=== PATIENT | female | born 1975 ===

== ENCOUNTER 2018-04-27 18:21 | Inpatient (IN) | payer BC ==
[2018-04-27] VITALS (11 sets, daily range): BP systolic 100–123; BP diastolic 61–88; BMI 21.5
[~2018-04-27] VITALS: Ht 162.6 cm; Wt 55.9 kg
--- NOTE | ~2018-04-27 | MORECARE ---
CASE MANAGEMENT DISCHARGE SUMMARY PATIENT: MARY BENITEZ UNIT: [id number] ADM DATE: 04/27/18 AGE: 42 : [birth year] SEX: F ROOM/BED: D.2236 AUTHOR: ABHISHEK GUAJARDO PHYSICIAN: REFERRING PHYSICIAN: KYLEE NJ MD DATE OF SERVICE: 05/08/18 Discharge Plan Patient Name: MARY BENITEZ Facility: [facility]:[place] : 1975 Planned Disposition: Home Anticipated Discharge Date: Discharge Date: Expected LOS: Initial Reviewer: [email or web address] Initial Review Date: 05/08/2018 Generated: 05/08/18 11:52 am Comments DCP- Discharge Planning Updated by [email or web address]: Charity Hatfield on 05/08/18 9:[address] Patient Name: MARY BENITEZ Admission Status: ER Accout number: [id number] Admission Date: 04-27-2018 : 1975 Admission Diagnosis:SEPSIS, UNSPECIFIED ORGANISM Attending: KYLEE NJ Current LOS: 11 Anticipated DC Date: Planned Disposition: Home Primary Insurance: [employer] OUT OF STATE Discharge Planning Comments: CM met with patient to discuss discharge planning, she is alone in the room. She is alert and answers some questions appropriately. She states it is ok to call her , aunt or father for discharge planning. I called her , Marcelo, for discharge planning. He verifies that she lives with him in a one story house. Prior to hospitalization she was independent with all ADL's and IADL's. States she does have a nebulizer that she uses for her asthma. States he is unsure of the name of the pharmacy they use in [place] or [place] for the nebulizer. States he plans on her returning home at discharge and he will provide transportation. States he does not know of any discharge needs at this time, including rehab or home health. CM will continue to follow and assist with discharge planning/needs. Civil Service Worker: Charity Hatfield DCPIA - Discharge Planning Initial Assessment Updated by [email or web address]: Charity Hatfield on 05/08/18 10:41 am * Is the patient Alert and Oriented? Yes * How many steps to enter\exit or inside your home? 2-3/0 * PCP Dr. Anderson in [facility] * Pharmacy Unknown name in [facility] * Preadmission Environment Home with Family * ADLs Independent * Equipment Nebulizer * List name and contact numbers for known caregivers / representatives who currently or will assist patient after discharge: Marcelo Anderson - - [phone] Fabricio - aunt - [phone] Father - [phone] * Verbal permission to speak to the caregivers and representatives has been obtained from the patient. Yes * Community resources currently utilized None * Additional services required to return to the preadmission environment? No * Can the patient safely return to the preadmission environment? Yes * Has this patient been hospitalized within the prior 30 days at any hospital? No Last DP export: 05/08/18 9:43 Patient Name: MARY BENITEZ Page [id number] at 1052 All edits/amendments must be made on the electronic document DICTATION DATE: 05/08/18 105 CLERGY MEMBER: MYRA 05/08/18 105 RPT#: [id number] DC DATE: STATUS: ADM IN [facility] [address] [place] [address] END OF REPORT
--- NOTE | ~2018-04-27 | MORECARE ---
CASE MANAGEMENT DISCHARGE SUMMARY PATIENT: MARY BENITEZ UNIT: [id number] ADM DATE: 04/27/18 AGE: 42 : 71 SEX: F ROOM/BED: D.2236 AUTHOR: ABHISHEK GUAJARDO PHYSICIAN: REFERRING PHYSICIAN: KYLEE NJ MD DATE OF SERVICE: 05/11/18 Discharge Plan Patient Name: MARY BENITEZ Facility: [facility]:[place] : 1975 Planned Disposition: Home Anticipated Discharge Date: Discharge Date: 05/10/2018 Expected LOS: Initial Reviewer: [email or web address] Initial Review Date: 05/08/2018 Generated: 05/11/18 2:01 pm Comments DCP- Discharge Planning Updated by [email or web address]: Charity Hatfield on 05/08/18 9:[address] Patient Name: MARY BENITEZ Admission Status: ER Accout number: [id number] Admission Date: 04-27-2018 : 1975 Admission Diagnosis:SEPSIS, UNSPECIFIED ORGANISM Attending: KYLEE NJ Current LOS: 11 Anticipated DC Date: Planned Disposition: Home Primary Insurance: [employer] OUT OF STATE Discharge Planning Comments: CM met with patient to discuss discharge planning, she is alone in the room. She is alert and answers some questions appropriately. She states it is ok to call her , aunt or father for discharge planning. I called her , Marcelo, for discharge planning. He verifies that she lives with him in a one story house. Prior to hospitalization she was independent with all ADL's and IADL's. States she does have a nebulizer that she uses for her asthma. States he is unsure of the name of the pharmacy they use in [place] or [employer] [employer] for the nebulizer. States he plans on her returning home at discharge and he will provide transportation. States he does not know of any discharge needs at this time, including rehab or home health. CM will continue to follow and assist with discharge planning/needs. Internet Sourcer: Charity Hatfield DCPIA - Discharge Planning Initial Assessment Updated by [email or web address]: Charity Hatfield on 05/08/18 10:41 am * Is the patient Alert and Oriented? Yes * How many steps to enter\exit or inside your home? 2-3/0 * PCP Dr. Anderson in [facility] * Pharmacy Unknown name in [facility] * Preadmission Environment Home with Family * ADLs Independent * Equipment Nebulizer * List name and contact numbers for known caregivers / representatives who currently or will assist patient after discharge: Marcelo Anderson - - [phone] Fabricio - aunt - [phone] Father - [phone] * Verbal permission to speak to the caregivers and representatives has been obtained from the patient. Yes * Community resources currently utilized None * Additional services required to return to the preadmission environment? No * Can the patient safely return to the preadmission environment? Yes * Has this patient been hospitalized within the prior 30 days at any hospital? No Last DP export: 05/08/18 9:52 Patient Name: MARY BENITEZ Page [id number] at 1301 All edits/amendments must be made on the electronic document DICTATION DATE: 05/11/18 1301 PROPERTY MANAGEMENT SUPERVISOR: MYRA 05/11/18 1301 RPT#: [id number] DC DATE:05/10/18 STATUS: DIS IN [facility] [address] [place] [address] END OF REPORT
--- NOTE | ~2018-04-27 | CN ---
PATIENT NAME:MARY BENITEZ MEDICAL RECORD: [id number] : [birth year] LOCATION:D.MS Turner2236 ADMIT DATE: 04/27/18 ACCOUNT: [id number] CONSULTING PHYSICIAN: LAVON WEST MD REFERRING PHYSICIAN: KYLEE NJ MD DATE OF CONSULTATION: 05/07/2018 PSYCHIATRIC CONSULTATION IDENTIFYING DATA: The patient is 42 years old and she was admitted to the hospital on a voluntary basis because of dyspnea. CHIEF COMPLAINT: None. HISTORY OF PRESENT ILLNESS: The patient apparently has a history of intravenous methamphetamine abuse and presented to the hospital dyspneic and hypothermic with respiratory failure. She was intubated and has been intubated for several days. She is now extubated and showing evidence of confusion. MENTAL STATUS EXAMINATION: The patient is awake, alert, and oriented to person, place, and mostly to time and situation. Her mood is euthymic. Her affect is appropriate. Thought processes are circumstantial. Memory, concentration, and abstraction abilities are impaired. She is very circumstantial and actually is openly loose in some of her associations. She denies psychotic symptoms as well as thoughts of harming herself or others. PAST PSYCHIATRIC HISTORY: Significant for longstanding methamphetamine addiction and she does have a history of trying to hurt herself years ago. She does not currently see a psychiatrist. ASSESSMENT: Mild cognitive impairment. The patient is clearly impaired cognitively. I do not believe this is a delirium. There has been too much time that has elapsed. She has now been extubated for over 24 hours. She is awake, alert, speaking to me normally, but with the deficits noted above. Obviously, she has had some sort of significant injury and I am assuming that this is a change in her cognition before she presented. The factors are probably multiple including a global hypoxic injury, but the patient is impaired in a significant way. I am going to prescribe a low dose of an antipsychotic medication for her. She says she has a that she is very supportive and that she wants to go home and live with him. She also says that one of the teenage children in the home was arrested today for selling methamphetamine. Assuming the home environment is appropriate and safe and reasonably drug free now that the teenage son has been arrested, I do not see a major problem with this. I think that as with many people who have brain injuries, time will be a factor that will determine how much improvement will happen. It would not be unreasonable for her to receive occupational therapy and/or speech therapy associated with what has happened to her. I would also recommend outpatient psychiatric care. Given her current level of cognition, I do not think she could participate in a residential substance abuse program and given the fact that she is minimizing and dismissing her history of substance abuse, I do not think that she would voluntarily go. I do not see her as acutely dangerous in some direct suicidal, homicidal, or psychotic way, but I am going to prescribe for her a low dose of Geodon to assist with sleep consolidation and thought disorganization. This would not be a medication that I would recommend long-term, but perhaps a month or two until what her new baseline level of functioning is better established CONSULT REPORT [id number] MARY BENITEZ and then at that point, consideration should be given to discontinuing it. TRANSINT:[id number] Voice Confirmation ID: [id number] DOCUMENT ID: [id number] LAVON WEST MD at 1627 CC: [id number] DICTATION DATE: 05/07/18 1640 SECURITY ESCORT: 05/07/18 2104 ADM IN [facility] [address] [place] [address]
--- NOTE | ~2018-04-27 | EC ---
PATIENT:MARY BENITEZ DATE OF SERVICE: 04/27/18 SEX: F MEDICAL RECORD: [id number] DATE OF : [birth year] LOCATION:[facility] AGE OF PATIENT: 42 ADMISSION DATE: 04/27/18 REFERRING PHYSICIAN: INTERPRETING PHYSICIAN: ALBANIA JONES MD ECHOCARDIOGRAM REPORT ECHO CHARGES 5 ECHO LIMITED Date: 05/01/18 CLINICAL DIAGNOSIS: POST THORACENTESISE/DOBUTAMINE GTT ECHOCARDIOGRAPHIC MEASUREMENTS (adult normal given) AC root (d.<3.7cm) 3.1 cm LV Septum d (<1.2 cm> 1.1 cm Valve Excursion 1.0 cm LV Septum (systole) 1.3 cm Left Atria (s.<4.0cm> 3.8 cm LVPW d(<1.2cm) 1.1 cm RV (d.<2.3cm) 4.1 cm LVPW (sytole) 1.2 cm LV diastole(<5.6CM) 4.5 cm MV E-F(>70mm/sec) cm LV systole 3.6 cm LVOT Diameter 1.5 cm MV exc.(>10mm) 1.8 cm Est.ejection fraction (50-75%) % DOPPLER: LVIT cm/sec A 29.0 cm/sec E 99.0 cm/sec LA cm/sec RVSP 35 mmHg LVOT 70 cm/sec AOP1/2T m/s Asc. Ao 81 cm/sec RVOT 61 cm/sec RA cm/sec PA 79 cm/sec AV Gradient Peak 2.62 mmHg AV Mean 1.37 mmHg AV Area 1.4 cm MV Gradient Peak 6.81 mmHg MV Mean 2.01 mmHg MV Area cm COMMENTS: Seo Coordinator: Arelis FONSECA Rouge Mixer: 2 Dr. Lee TAPE# PACS Pericardial Effusion N DATE OF SERVICE: 05/01/2018 PROCEDURE: Echocardiogram. FINDINGS: 1. Left ventricular chamber size is within normal limits. Left ventricular systolic function is markedly reduced, overall ejection fraction in the 25% range. There appears to be segmental wall motion abnormalities of lateral and inferior with severe hypokinesis inferiorly, krxvzstc-[id number] hypokinesis laterally. Anterior wall does appear to be relatively preserved. ECHOCARDIOGRAM REPORT [id number] MARY BENITEZ 2. Left atrium, right atrium, and right ventricle chamber sizes are within normal limits. 3. Valvular structures have normal structure and motion. 4. Doppler interrogation reveals mild tricuspid regurgitation, no other valvular insufficiency or stenosis. Pulmonary systolic pressure is estimated at 35 mmHg. 5. Large pericardial effusion is present. This does not appear to give right atrial or right ventricular collapse. TRANSINT:[id number] Voice Confirmation ID: [id number] DOCUMENT ID: [id number] ALBANIA JONES MD at 1031 CC: [id number] DICTATION DATE: 05/01/18 1403 SHAREPOINT ADMINISTRATOR: 05/01/18 1503 ADM IN [facility] [address] [place] [id number]
--- NOTE | ~2018-04-27 | EC ---
PATIENT:MARY BENITEZ DATE OF SERVICE: 04/27/18 SEX: F MEDICAL RECORD: [id number] DATE OF : [birth year] LOCATION:[facility] AGE OF PATIENT: 42 ADMISSION DATE: 04/27/18 REFERRING PHYSICIAN: INTERPRETING PHYSICIAN: ALBANIA RAMIRES MD ECHOCARDIOGRAM REPORT ECHO CHARGES 4 ECHO COMPLETE Date: 04/28/18 CLINICAL DIAGNOSIS: [place] ECHOCARDIOGRAPHIC MEASUREMENTS (adult normal given) AC root (d.<3.7cm) 3.1 cm LV Septum d (<1.2 cm> 1.3 cm Valve Excursion 1.0 cm LV Septum (systole) 1.6 cm Left Atria (s.<4.0cm> 3.5 cm LVPW d(<1.2cm) 1.5 cm RV (d.<2.3cm) 4.2 cm LVPW (sytole) 1.8 cm LV diastole(<5.6CM) 4.0 cm MV E-F(>70mm/sec) cm LV systole 3.3 cm LVOT Diameter 1.5 cm MV exc.(>10mm) 1.8 cm Est.ejection fraction (50-75%) % DOPPLER: LVIT cm/sec A 29.0 cm/sec E 99.0 cm/sec LA cm/sec RVSP 32 mmHg LVOT 70 cm/sec AOP1/2T m/s Asc. Ao 81 cm/sec RVOT 61 cm/sec RA cm/sec PA 79 cm/sec AV Gradient Peak 2.62 mmHg AV Mean 1.37 mmHg AV Area 1.4 cm MV Gradient Peak 6.81 mmHg MV Mean 2.01 mmHg MV Area cm COMMENTS: Still Runner: Arelis FONSECA Financial Consultant: 1 Dr. Ramires TAPE# PACS Pericardial Effusion N DATE OF SERVICE: 04/28/2018 Echocardiogram FINDINGS: 1. Left ventricular chamber size is at the upper limits of normal. Left ventricular systolic function is markedly reduced, overall ejection fraction 20% to 25%. There is global hypokinesis throughout all segments with no discrete wall motion abnormalities present. 2. Left atrium is within normal limits at 3.5 cm. Right atrium and right ECHOCARDIOGRAM REPORT [id number] MARY BENITEZ ventricle chamber sizes are as well within normal limits. 3. Valvular structures have normal structure and motion. 4. Doppler interrogation reveals mild mitral regurgitation, pfmnpmsy-bv-jlkvdy tricuspid regurgitation, no other valvular insufficiency or stenosis. Pulmonary systolic pressure is normal estimated at 32 mmHg. 5. Large pericardial effusion is present, but this does not appear to be hemodynamically compromising. It does not appear to be causing tamponade. There is no evidence of right atrial or right ventricular collapse. TRANSINT:[id number] Voice Confirmation ID: [id number] DOCUMENT ID: [id number] ALBANIA RAMIRES MD at 1059 CC: [id number] DICTATION DATE: 04/28/18 1620 CLINIC CLERK: 04/28/18 2306 ADM IN [facility] [address] [place] [id number]
--- NOTE | ~2018-04-27 | CN ---
PATIENT NAME:MARY BENITEZ MEDICAL RECORD: [id number] : [birth year] LOCATION:D.MS [facility]2236 ADMIT DATE: 04/27/18 ACCOUNT: [id number] CONSULTING PHYSICIAN: LAVON WEST MD REFERRING PHYSICIAN: KYLEE NJ MD DATE OF CONSULTATION: 05/06/2018 The patient's medical record was reviewed. She was just extubated recently and is still having a fair amount of confusion. I am consulted because of her substance abuse and I am going to wait another 24 hours to see her and hopefully she will be more cognitively intact and able to give me a better history and we can discuss her treatment options. At this point, the description in the record sounds very consistent with a delirium associated with being in the intensive care unit on a ventilator and possibly some substance abuse withdrawal. I would recommend p.r.n. use of an antipsychotic and/or an anxiolytic if necessary and again when she is more awake and cognizant and talkative, I will check on her in about 24 hours to see if that is an appropriate time to do the consult. TRANSINT:[id number] Voice Confirmation ID: [id number] DOCUMENT ID: [id number] LAVON WEST MD at 1613 CC: [id number] DICTATION DATE: 05/06/18 1234 RUBBER CUTTER AND SHAPE CARVER: 05/06/18 1247 ADM IN [place] [id number] [place] [address]
--- NOTE | ~2018-04-27 | CN ---
PATIENT NAME:MARY ALVAREZ MEDICAL RECORD: [id number] : [birth year] LOCATION:[facility]12 ADMIT DATE: 04/27/18 ACCOUNT: [id number] CONSULTING PHYSICIAN: ALBANIA JONES MD REFERRING PHYSICIAN: KYLEE NJ MD DATE OF CONSULTATION: 04/28/2018 CARDIOLOGY CONSULTATION DIAGNOSES: 1. Increased troponin. 2. Respiratory failure requiring intubation. HISTORY OF PRESENT ILLNESS: Mrs. Alvarez is an IV drug user and as well as an asthmatic, who complained of shortness of breath. This rapidly progressed to respiratory failure. She is now intubated. Her troponin is elevated. Her EKG is with no acute ST-T abnormalities, no known cardiac history in the past. PHYSICAL EXAMINATION: GENERAL APPEARANCE: Well-nourished, well-developed, appears stated age. Level of distress, comfortable. PSYCHIATRIC: Mental status, alert, normal affect. Orientation, oriented to time, place and person. EYES: Lids and conjunctiva, noninjected. No discharge, no pallor. ENT: Lips, teeth, gums, normal dentition. Oropharynx, no cyanosis, no pallor. NECK: Carotid arteries, bilateral normal upstroke, no bruits, no thrills. JUGULAR VEINS: No jugular venous pressure or distention. CERVICAL LYMPH NODES: Nontender, nonenlarged. THYROID: Not enlarged. Nontender. No nodules. LUNGS: Respiratory effort, unlabored. CHEST: Normal curvature. No thoracic deformity. No chest wall tenderness. Percussion, resonant. Auscultation, clear. No wheezes, no rales, no rhonchi. CARDIOVASCULAR: Precordial exam, nondisplaced. No heaves or pericardial thrills. Rate and rhythm, regular. Heart sounds, normal S1, normal S2. No S3, no gallop, no rub. Systolic murmur, not heard. Diastolic murmur, not heard. EXTREMITIES: No cyanosis, no edema. Peripheral pulses, full and equal in all extremities, except as noted. No bruits appreciated. ABDOMEN: Soft, nondistended. Normal aorta. No bruit. Nontender. No masses. Liver, nontender, no hepatomegaly. Spleen, nontender, no splenomegaly. MUSCULOSKELETAL: No joint tenderness. No joint swelling. No erythema. NEUROLOGICAL: Normal gait, normal strength, normal tone. SKIN: Warm and dry. OVERALL IMPRESSION: Increased troponin, most likely demand ischemia. She is hypotensive and tachycardic. We will get an echocardiogram. Continue supportive care. Further care depends upon the results of the echo. TRANSINT:[id number] Voice Confirmation ID: [id number] DOCUMENT ID: [id number] CONSULT REPORT [id number] MARY ALVAREZ, ALBANIA BALDWIN at 1059 CC: [id number] DICTATION DATE: 04/28/18 1350 LOCUM TENENS: 04/28/18 1428 ADM IN [facility] [address] [place] [id number]
--- NOTE | ~2018-04-27 | MORECARE ---
CASE MANAGEMENT DISCHARGE SUMMARY PATIENT: MARY BENITEZ UNIT: [id number] ADM DATE: 04/27/18 AGE: 42 : [birth year] SEX: F ROOM/BED: D.2236 AUTHOR: ABHISHEK GUAJARDO PHYSICIAN: REFERRING PHYSICIAN: KYLEE NJ MD DATE OF SERVICE: 05/08/18 Discharge Plan Patient Name: MARY BENITEZ Facility: [facility]:[place] : 1975 Planned Disposition: Home Anticipated Discharge Date: Discharge Date: Expected LOS: Initial Reviewer: [email or web address] Initial Review Date: 05/08/2018 Generated: 05/08/18 11:43 am DCPIA - Discharge Planning Initial Assessment Updated by [email or web address]: Charity Hatfield on 05/08/18 10:41 am * Is the patient Alert and Oriented? Yes * How many steps to enter\exit or inside your home? 2-3/0 * PCP Dr. Anderson in [facility] * Pharmacy Unknown name in [facility] * Preadmission Environment Home with Family * ADLs Independent * Equipment Nebulizer * List name and contact numbers for known caregivers / representatives who currently or will assist patient after discharge: Marcelo Anderson - - [phone] Fabricio - aunt - [phone] Father [phone] * Verbal permission to speak to the caregivers and representatives has been obtained from the patient. Yes * Community resources currently utilized None * Additional services required to return to the preadmission environment? No * Can the patient safely return to the preadmission environment? Yes * Has this patient been hospitalized within the prior 30 days at any hospital? No Patient Name: MARY BENITEZ Page [id number] at 1043 All edits/amendments must be made on the electronic document DICTATION DATE: 05/08/18 1043 CLAY GRINDER: MYRA 05/08/18 1043 RPT#: [id number] DC DATE: STATUS: ADM IN [facility] [address] [place] [address] END OF REPORT
[2018-04-27 19:22] LABS: BASOPHILS 0 % (0-2); EOSINOPHILS 0.1 % (0-7); HEMATOCRIT 48.6 % (36.0-48.0); HEMOGLOBIN 16.7 g/dL (12-16); IMMATURE GRANULOCYTES 0.6 % (0-5); LYMPHOCYTES 3.1 % (15-50); MCH 34.4 pg (26.0-34.0); MCHC 34.4 g/dL (31.0-37.0); MEAN PLATELET VOLUME 11.7 fL (7.4-10.4); MONOCYTES 5.1 % (2-11); NEUTROPHILS 91.1 % (40-80); PLATELET COUNT 194 10x3/uL (130-400); RBC 4.86 10x6/uL (4.00-5.40); RDW 13.6 % (11.5-14.5); WBC 9.9 10x3/uL (4.8-10.8)
[2018-04-27 19:49] LABS: APTT 29.3 SECONDS (22.8-39.4); INR 1.59 (0.85-1.17); PROTIME 18.5 SECONDS (11.6-15.0)
[2018-04-27 19:50] LABS: APPEARANCE CLEAR (CLEAR); BILIRUBIN NEGATIVE (NEGATIVE); COLOR YELLOW (YELLOW); GLUCOSE NEGATIVE (NEGATIVE); KETONE NEGATIVE (NEGATIVE); NITRITE NEGATIVE (NEGATIVE); PROTEIN NEGATIVE (NEGATIVE); SPECIFIC GRAVITY 1.015 (1.005-1.020); UROBILINOGEN NORMAL (NORMAL)
[2018-04-27 19:51] LABS: BACTERIA MODERATE /hpf (NONE SEEN); EPITHELIAL CELLS 0-5 /hpf (0-5); RED CELLS - URINE 25-50 /hpf (0-5)
[2018-04-27 20:16] LABS: ALBUMIN 2.7 g/dL (3.4-5.0); ALKALINE PHOSPHATASE 119 U/L (46-116); ALT (SGPT) 18 U/L (10-68); BILIRUBIN - TOTAL 0.95 mg/dL (0.2-1.3); CALC OSMOLALITY 264 mosm/kg (275-300); CALCIUM 7.8 mg/dL (8.5-10.1); CARBON DIOXIDE 16.2 mmol/L (21.0-32.0); CHLORIDE - SERUM 93 mmol/L (98-107); CREATININE - SERUM 0.5 mg/dL (0.6-1.3); GLUCOSE 125 mg/dL (74-106); POTASSIUM - SERUM 3.2 mmol/L (3.5-5.1); PROTEIN - SERUM 6.7 g/dL (6.4-8.2); SODIUM 132 mmol/L (136-145); UREA NITROGEN 9 mg/dL (7-18); eGFR NON AFRICAN AMERICAN > 90 mL/min (90-120)
[2018-04-27 20:29] LABS: CKMB 54.6 U/L (0.0-3.6); CREATINE KINASE 522 UL (21-215)
[2018-04-27 20:35] LABS: TROPONIN-I 0.812 ng/mL (0.000-0.060)
[2018-04-28] VITALS (85 sets, daily range): BP systolic 75–116; BP diastolic 33–91; BMI 21.4
[2018-04-28 02:08] LABS: ALBUMIN 2.9 g/dL (3.4-5.0); ALKALINE PHOSPHATASE 134 U/L (46-116); ALT (SGPT) 22 U/L (10-68); BILIRUBIN - TOTAL 1.21 mg/dL (0.2-1.3); CALC OSMOLALITY 261 mosm/kg (275-300); CALCIUM 8.2 mg/dL (8.5-10.1); CARBON DIOXIDE 14.6 mmol/L (21.0-32.0); CHLORIDE - SERUM 92 mmol/L (98-107); CKMB 94.6 U/L (0.0-3.6); CREATININE - SERUM 0.6 mg/dL (0.6-1.3); GLUCOSE 105 mg/dL (74-106); MAGNESIUM - SERUM 1.5 mg/dL (1.8-2.4); PROTEIN - SERUM 7.5 g/dL (6.4-8.2); SODIUM 131 mmol/L (136-145); UREA NITROGEN 10 mg/dL (7-18); eGFR NON AFRICAN AMERICAN > 90 mL/min (90-120)
[2018-04-28 02:11] LABS: CREATINE KINASE 699 UL (21-215); POTASSIUM - SERUM 3.7 mmol/L (3.5-5.1); TROPONIN-I 1.181 ng/mL (0.000-0.060)
[2018-04-28 06:53] LABS: BASOPHILS 0 % (0-2); EOSINOPHILS 0 % (0-7); HEMATOCRIT 45.3 % (36.0-48.0); HEMOGLOBIN 15.6 g/dL (12-16); IMMATURE GRANULOCYTES 0.2 % (0-5); LYMPHOCYTES 5.8 % (15-50); MCH 34.1 pg (26.0-34.0); MCHC 34.4 g/dL (31.0-37.0); MCV 98.9 fL (80.0-100.0); MEAN PLATELET VOLUME 11.9 fL (7.4-10.4); MONOCYTES 5.6 % (2-11); NEUTROPHILS 88.4 % (40-80); PLATELET COUNT 211 10x3/uL (130-400); RBC 4.58 10x6/uL (4.00-5.40); RDW 13.8 % (11.5-14.5)
[2018-04-28 07:46] LABS: CREATINE KINASE 498 UL (21-215); TROPONIN-I 3.763 ng/mL (0.000-0.060)
[2018-04-28 08:08] LABS: ALBUMIN 2.2 g/dL (3.4-5.0); ALKALINE PHOSPHATASE 89 U/L (46-116); ALT (SGPT) 21 U/L (10-68); BILIRUBIN - TOTAL 0.88 mg/dL (0.2-1.3); CALC OSMOLALITY 266 mosm/kg (275-300); CALCIUM 7.2 mg/dL (8.5-10.1); CARBON DIOXIDE 20.8 mmol/L (21.0-32.0); CHLORIDE - SERUM 94 mmol/L (98-107); CREATININE - SERUM 0.9 mg/dL (0.6-1.3); GLUCOSE 233 mg/dL (74-106); POTASSIUM - SERUM 3.7 mmol/L (3.5-5.1); PROTEIN - SERUM 5.5 g/dL (6.4-8.2); SODIUM 130 mmol/L (136-145); UREA NITROGEN 11 mg/dL (7-18); eGFR NON AFRICAN AMERICAN 72 mL/min (90-120)
[2018-04-28 13:12] LABS: CKMB 46.1 U/L (0.0-3.6); CREATINE KINASE 464 UL (21-215)
[2018-04-28 13:20] LABS: TROPONIN-I 3.778 ng/mL (0.000-0.060)
[2018-04-29] VITALS (67 sets, daily range): BP systolic 86–113; BP diastolic 51–86
[2018-04-29 04:33] LABS: BASOPHILS 0 % (0-2); EOSINOPHILS 0 % (0-7); HEMATOCRIT 46.1 % (36.0-48.0); HEMOGLOBIN 16.5 g/dL (12-16); IMMATURE GRANULOCYTES 0.3 % (0-5); LYMPHOCYTES 3.3 % (15-50); MCH 34.2 pg (26.0-34.0); MCHC 35.8 g/dL (31.0-37.0); MEAN PLATELET VOLUME 11.6 fL (7.4-10.4); MONOCYTES 7.8 % (2-11); NEUTROPHILS 88.6 % (40-80); PLATELET COUNT 189 10x3/uL (130-400); RBC 4.82 10x6/uL (4.00-5.40); RDW 13.8 % (11.5-14.5); WBC 13.3 10x3/uL (4.8-10.8)
[2018-04-29 04:38] LABS: MCV 95.6 fL (80.0-100.0)
[2018-04-29 05:09] LABS: ALBUMIN 2.3 g/dL (3.4-5.0); ALKALINE PHOSPHATASE 89 U/L (46-116); ALT (SGPT) 20 U/L (10-68); BILIRUBIN - TOTAL 0.85 mg/dL (0.2-1.3); CALC OSMOLALITY 268 mosm/kg (275-300); CARBON DIOXIDE 23.8 mmol/L (21.0-32.0); CHLORIDE - SERUM 96 mmol/L (98-107); CREATININE - SERUM 0.8 mg/dL (0.6-1.3); GLUCOSE 196 mg/dL (74-106); MAGNESIUM - SERUM 2.1 mg/dL (1.8-2.4); POTASSIUM - SERUM 4.2 mmol/L (3.5-5.1); PROTEIN - SERUM 6.2 g/dL (6.4-8.2); SODIUM 131 mmol/L (136-145); TROPONIN-I 1.794 ng/mL (0.000-0.060); UREA NITROGEN 16 mg/dL (7-18); eGFR NON AFRICAN AMERICAN 82 mL/min (90-120)
[2018-04-29 10:20] LABS: HEPATITIS C ANTIBODY <0.1 S/CO RAT (0.0-0.9)
[2018-04-30] VITALS (26 sets, daily range): BP systolic 89–118; BP diastolic 45–97; Ht 162.6 cm; Wt 55.9 kg
[2018-04-30 04:59] LABS: ALBUMIN 2.3 g/dL (3.4-5.0); ALKALINE PHOSPHATASE 95 U/L (46-116); ALT (SGPT) 21 U/L (10-68); BILIRUBIN - TOTAL 0.86 mg/dL (0.2-1.3); CALC OSMOLALITY 269 mosm/kg (275-300); CALCIUM 8.2 mg/dL (8.5-10.1); CARBON DIOXIDE 23.9 mmol/L (21.0-32.0); CHLORIDE - SERUM 95 mmol/L (98-107); CREATININE - SERUM 0.6 mg/dL (0.6-1.3); MAGNESIUM - SERUM 2.3 mg/dL (1.8-2.4); PHOSPHOROUS 3.6 mg/dL (2.5-4.9); POTASSIUM - SERUM 4.8 mmol/L (3.5-5.1); PROTEIN - SERUM 6.3 g/dL (6.4-8.2); SODIUM 133 mmol/L (136-145); UREA NITROGEN 16 mg/dL (7-18); VANCOMYCIN - RANDOM 35.5 ug/mL (10.0-20.0); eGFR NON AFRICAN AMERICAN > 90 mL/min (90-120)
[2018-04-30 05:04] LABS: GLUCOSE 146 mg/dL (74-106)
[2018-04-30 06:34] LABS: BASOPHILS 0 % (0-2); EOSINOPHILS 0 % (0-7); HEMATOCRIT 45.4 % (36.0-48.0); HEMOGLOBIN 15.9 g/dL (12-16); IMMATURE GRANULOCYTES 0.4 % (0-5); LYMPHOCYTES 1.6 % (15-50); MEAN PLATELET VOLUME 11.3 fL (7.4-10.4); PLATELET COUNT 174 10x3/uL (130-400); RBC 4.68 10x6/uL (4.00-5.40); RDW 14.3 % (11.5-14.5)
[2018-04-30 06:35] LABS: WBC 18.2 10x3/uL (4.8-10.8)
[2018-04-30 08:17] LABS: INR 1.36 (0.85-1.17); PROTIME 16.3 SECONDS (11.6-15.0)
[2018-04-30 13:09] LABS: PROTEIN - BODY FLUID 2.1 G/DL
[2018-04-30 14:31] LABS: EOS BF 0 %; MACROPHAGES BF 0 %; MESOTHELIALS BF 18 %; NEUT - BF 82 %
[2018-05-01] VITALS (25 sets, daily range): BP systolic 98–140; BP diastolic 45–95
[2018-05-01 04:34] LABS: BASOPHILS 0 % (0-2); EOSINOPHILS 0 % (0-7); HEMATOCRIT 41.7 % (36.0-48.0); HEMOGLOBIN 14.5 g/dL (12-16); IMMATURE GRANULOCYTES 0.2 % (0-5); LYMPHOCYTES 2.1 % (15-50); MCH 33.6 pg (26.0-34.0); MCHC 34.8 g/dL (31.0-37.0); MCV 96.5 fL (80.0-100.0); MEAN PLATELET VOLUME 11.5 fL (7.4-10.4); MONOCYTES 8.8 % (2-11); NEUTROPHILS 88.9 % (40-80); PLATELET COUNT 181 10x3/uL (130-400); RBC 4.32 10x6/uL (4.00-5.40); RDW 13.9 % (11.5-14.5)
[2018-05-01 04:37] LABS: WBC 13.2 10x3/uL (4.8-10.8)
[2018-05-01 05:50] LABS: ALBUMIN 1.9 g/dL (3.4-5.0); ALKALINE PHOSPHATASE 77 U/L (46-116); BILIRUBIN - TOTAL 0.65 mg/dL (0.2-1.3); CALCIUM 8.3 mg/dL (8.5-10.1); CARBON DIOXIDE 28.4 mmol/L (21.0-32.0); CHLORIDE - SERUM 96 mmol/L (98-107); GLUCOSE 136 mg/dL (74-106); PROTEIN - SERUM 5.5 g/dL (6.4-8.2); SODIUM 132 mmol/L (136-145); VANCOMYCIN - RANDOM 21.9 ug/mL (10.0-20.0)
[2018-05-01 05:51] LABS: ALT (SGPT) 15 U/L (10-68); CALC OSMOLALITY 269 mosm/kg (275-300); CREATININE - SERUM 0.8 mg/dL (0.6-1.3); POTASSIUM - SERUM 3.4 mmol/L (3.5-5.1); UREA NITROGEN 21 mg/dL (7-18); eGFR NON AFRICAN AMERICAN 82 mL/min (90-120)
[2018-05-01 13:20] LABS: FUNGUS STAIN Final report (())
[2018-05-01 16:15] LABS: ACID FAST SMEAR Negative (()); AFB SPECIMEN PROCESSING Not Indicated (())
[2018-05-02] VITALS (26 sets, daily range): BP systolic 91–146; BP diastolic 45–93
[2018-05-02 07:29] LABS: BASOPHILS 0.1 % (0-2); EOSINOPHILS 0 % (0-7); HEMOGLOBIN 15.1 g/dL (12-16); IMMATURE GRANULOCYTES 0.3 % (0-5); LYMPHOCYTES 2.1 % (15-50); MCH 34.2 pg (26.0-34.0); MCHC 35.1 g/dL (31.0-37.0); MCV 97.3 fL (80.0-100.0); MEAN PLATELET VOLUME 11.3 fL (7.4-10.4); MONOCYTES 7.7 % (2-11); NEUTROPHILS 89.8 % (40-80); PLATELET COUNT 206 10x3/uL (130-400); RBC 4.42 10x6/uL (4.00-5.40); RDW 14.2 % (11.5-14.5); WBC 11.6 10x3/uL (4.8-10.8)
[2018-05-02 07:40] LABS: ALKALINE PHOSPHATASE 83 U/L (46-116); ALT (SGPT) 15 U/L (10-68); BILIRUBIN - TOTAL 0.55 mg/dL (0.2-1.3); CALC OSMOLALITY 277 mosm/kg (275-300); CALCIUM 8.7 mg/dL (8.5-10.1); CARBON DIOXIDE 32.3 mmol/L (21.0-32.0); CHLORIDE - SERUM 97 mmol/L (98-107); CREATININE - SERUM 0.8 mg/dL (0.6-1.3); GLUCOSE 130 mg/dL (74-106); LDH 347 U/L (81-234); POTASSIUM - SERUM 3.3 mmol/L (3.5-5.1); PROTEIN - SERUM 5.8 g/dL (6.4-8.2); SODIUM 136 mmol/L (136-145); UREA NITROGEN 25 mg/dL (7-18); VANCOMYCIN - RANDOM 11.9 ug/mL (10.0-20.0); eGFR NON AFRICAN AMERICAN 82 mL/min (90-120)
[2018-05-03] VITALS (24 sets, daily range): BP systolic 85–101; BP diastolic 48–64
[2018-05-03 04:19] LABS: BASOPHILS 0.1 % (0-2); EOSINOPHILS 0.1 % (0-7); HEMATOCRIT 44.1 % (36.0-48.0); HEMOGLOBIN 15.4 g/dL (12-16); IMMATURE GRANULOCYTES 0.4 % (0-5); LYMPHOCYTES 4.7 % (15-50); MCH 34.1 pg (26.0-34.0); MCHC 34.9 g/dL (31.0-37.0); MCV 97.8 fL (80.0-100.0); MEAN PLATELET VOLUME 12.1 fL (7.4-10.4); MONOCYTES 12.3 % (2-11); NEUTROPHILS 82.4 % (40-80); RBC 4.51 10x6/uL (4.00-5.40); RDW 14.2 % (11.5-14.5); WBC 10.1 10x3/uL (4.8-10.8)
[2018-05-03 04:20] LABS: PLATELET COUNT 129 10x3/uL (130-400)
[2018-05-03 05:31] LABS: CALC OSMOLALITY 281 mosm/kg (275-300); CALCIUM 8.5 mg/dL (8.5-10.1); CARBON DIOXIDE 36.7 mmol/L (21.0-32.0); CHLORIDE - SERUM 98 mmol/L (98-107); CREATININE - SERUM 0.8 mg/dL (0.6-1.3); GLUCOSE 105 mg/dL (74-106); MAGNESIUM - SERUM 1.8 mg/dL (1.8-2.4); PHOSPHOROUS 4.2 mg/dL (2.5-4.9); POTASSIUM - SERUM 3.4 mmol/L (3.5-5.1); SODIUM 138 mmol/L (136-145); UREA NITROGEN 29 mg/dL (7-18); eGFR NON AFRICAN AMERICAN 82 mL/min (90-120)
[2018-05-04] VITALS (53 sets, daily range): BP systolic 97–130; BP diastolic 56–91
[2018-05-04 04:22] LABS: BASOPHILS 0.1 % (0-2); EOSINOPHILS 0.1 % (0-7); HEMOGLOBIN 15.4 g/dL (12-16); IMMATURE GRANULOCYTES 0.6 % (0-5); LYMPHOCYTES 3.6 % (15-50); MCH 33.9 pg (26.0-34.0); MCHC 34.2 g/dL (31.0-37.0); MCV 99.1 fL (80.0-100.0); MEAN PLATELET VOLUME 11.8 fL (7.4-10.4); MONOCYTES 10.6 % (2-11); RBC 4.54 10x6/uL (4.00-5.40); RDW 14.3 % (11.5-14.5)
[2018-05-04 04:23] LABS: PLATELET COUNT 233 10x3/uL (130-400); WBC 14.2 10x3/uL (4.8-10.8)
[2018-05-04 04:30] LABS: ALBUMIN 2.3 g/dL (3.4-5.0); ALKALINE PHOSPHATASE 88 U/L (46-116); BILIRUBIN - TOTAL 0.65 mg/dL (0.2-1.3); CALC OSMOLALITY 282 mosm/kg (275-300); CALCIUM 9.1 mg/dL (8.5-10.1); CARBON DIOXIDE 35.2 mmol/L (21.0-32.0); CHLORIDE - SERUM 99 mmol/L (98-107); CREATININE - SERUM 0.7 mg/dL (0.6-1.3); GLUCOSE 116 mg/dL (74-106); MAGNESIUM - SERUM 2.2 mg/dL (1.8-2.4); PHOSPHOROUS 3.3 mg/dL (2.5-4.9); PROTEIN - SERUM 6.4 g/dL (6.4-8.2); SODIUM 138 mmol/L (136-145); UREA NITROGEN 29 mg/dL (7-18); eGFR NON AFRICAN AMERICAN > 90 mL/min (90-120)
[2018-05-04 04:31] LABS: ALT (SGPT) 19 U/L (10-68); POTASSIUM - SERUM 3.4 mmol/L (3.5-5.1)
[2018-05-05] VITALS (26 sets, daily range): BP systolic 100–123; BP diastolic 61–95
[2018-05-05 04:54] LABS: BASOPHILS 0.1 % (0-2); EOSINOPHILS 0.6 % (0-7); HEMATOCRIT 42.5 % (36.0-48.0); HEMOGLOBIN 14.3 g/dL (12-16); IMMATURE GRANULOCYTES 0.9 % (0-5); LYMPHOCYTES 4.4 % (15-50); MCH 33.6 pg (26.0-34.0); MCHC 33.6 g/dL (31.0-37.0); MCV 99.8 fL (80.0-100.0); MEAN PLATELET VOLUME 10.9 fL (7.4-10.4); PLATELET COUNT 216 10x3/uL (130-400); RBC 4.26 10x6/uL (4.00-5.40); RDW 13.9 % (11.5-14.5); WBC 10.9 10x3/uL (4.8-10.8)
[2018-05-05 05:06] LABS: CALC OSMOLALITY 281 mosm/kg (275-300); CARBON DIOXIDE 33.1 mmol/L (21.0-32.0); CHLORIDE - SERUM 100 mmol/L (98-107); CREATININE - SERUM 0.7 mg/dL (0.6-1.3); GLUCOSE 138 mg/dL (74-106); POTASSIUM - SERUM 3.4 mmol/L (3.5-5.1); SODIUM 137 mmol/L (136-145); UREA NITROGEN 28 mg/dL (7-18); eGFR NON AFRICAN AMERICAN > 90 mL/min (90-120)
[2018-05-06] VITALS (26 sets, daily range): BP systolic 85–119; BP diastolic 57–84
[2018-05-06 05:18] LABS: BASOPHILS 0.1 % (0-2); EOSINOPHILS 3.5 % (0-7); HEMATOCRIT 43.1 % (36.0-48.0); HEMOGLOBIN 14.5 g/dL (12-16); IMMATURE GRANULOCYTES 1.3 % (0-5); LYMPHOCYTES 13.1 % (15-50); MCH 33.5 pg (26.0-34.0); MCHC 33.6 g/dL (31.0-37.0); MCV 99.5 fL (80.0-100.0); MEAN PLATELET VOLUME 10.7 fL (7.4-10.4); MONOCYTES 15.6 % (2-11); NEUTROPHILS 66.4 % (40-80); PLATELET COUNT 211 10x3/uL (130-400); RBC 4.33 10x6/uL (4.00-5.40); RDW 13.8 % (11.5-14.5); WBC 8.7 10x3/uL (4.8-10.8)
[2018-05-06 05:28] LABS: CALCIUM 9.3 mg/dL (8.5-10.1); CARBON DIOXIDE 29.4 mmol/L (21.0-32.0); CHLORIDE - SERUM 103 mmol/L (98-107); CREATININE - SERUM 0.7 mg/dL (0.6-1.3); SODIUM 140 mmol/L (136-145); UREA NITROGEN 22 mg/dL (7-18); eGFR NON AFRICAN AMERICAN > 90 mL/min (90-120)
[2018-05-06 05:36] LABS: CALC OSMOLALITY 280 mosm/kg (275-300); GLUCOSE 80 mg/dL (74-106)
[2018-05-06 05:39] LABS: POTASSIUM - SERUM 2.8 mmol/L (3.5-5.1)
[2018-05-06 15:25] LABS: FUNGUS MYCOLOGY CULTURE Preliminary report (())
[2018-05-07] VITALS (13 sets, daily range): BP systolic 95–125; BP diastolic 62–96
[2018-05-07 05:48] LABS: BASOPHILS 0.4 % (0-2); EOSINOPHILS 1.5 % (0-7); HEMATOCRIT 41.7 % (36.0-48.0); LYMPHOCYTES 15.8 % (15-50); MCH 33.4 pg (26.0-34.0); MCHC 33.6 g/dL (31.0-37.0); MCV 99.5 fL (80.0-100.0); MEAN PLATELET VOLUME 10.8 fL (7.4-10.4); MONOCYTES 16.5 % (2-11); NEUTROPHILS 64.8 % (40-80); PLATELET COUNT 227 10x3/uL (130-400); RBC 4.19 10x6/uL (4.00-5.40); RDW 13.6 % (11.5-14.5); WBC 8.2 10x3/uL (4.8-10.8)
[2018-05-07 06:12] LABS: CALC OSMOLALITY 280 mosm/kg (275-300); CALCIUM 9.2 mg/dL (8.5-10.1); CARBON DIOXIDE 27.3 mmol/L (21.0-32.0); CHLORIDE - SERUM 104 mmol/L (98-107); CREATININE - SERUM 0.6 mg/dL (0.6-1.3); GLUCOSE 95 mg/dL (74-106); POTASSIUM - SERUM 3.4 mmol/L (3.5-5.1); SODIUM 139 mmol/L (136-145); UREA NITROGEN 20 mg/dL (7-18); eGFR NON AFRICAN AMERICAN > 90 mL/min (90-120)
[2018-05-08 06:38] VITALS: BP 104/68
[2018-05-08 07:04] LABS: BASOPHILS 0.3 % (0-2); CALCIUM 9.1 mg/dL (8.5-10.1); CARBON DIOXIDE 26.6 mmol/L (21.0-32.0); CHLORIDE - SERUM 104 mmol/L (98-107); CREATININE - SERUM 0.6 mg/dL (0.6-1.3); EOSINOPHILS 0.9 % (0-7); GLUCOSE 137 mg/dL (74-106); HEMATOCRIT 41.3 % (36.0-48.0); HEMOGLOBIN 13.9 g/dL (12-16); IMMATURE GRANULOCYTES 0.6 % (0-5); LYMPHOCYTES 13.2 % (15-50); MCH 33.2 pg (26.0-34.0); MCHC 33.7 g/dL (31.0-37.0); MCV 98.6 fL (80.0-100.0); MEAN PLATELET VOLUME 10.9 fL (7.4-10.4); MONOCYTES 13.5 % (2-11); NEUTROPHILS 71.5 % (40-80); PLATELET COUNT 233 10x3/uL (130-400); RBC 4.19 10x6/uL (4.00-5.40); RDW 13.5 % (11.5-14.5); SODIUM 139 mmol/L (136-145); WBC 9.5 10x3/uL (4.8-10.8); eGFR NON AFRICAN AMERICAN > 90 mL/min (90-120)
[2018-05-08 07:08] LABS: CALC OSMOLALITY 280 mosm/kg (275-300); UREA NITROGEN 14 mg/dL (7-18)
[2018-05-08 07:09] LABS: POTASSIUM - SERUM 2.9 mmol/L (3.5-5.1)
[2018-05-08 08:23] VITALS: BP 99/60
[2018-05-08 11:10] LABS: MAGNESIUM - SERUM 1.4 mg/dL (1.8-2.4); PHOSPHOROUS 2.6 mg/dL (2.5-4.9)
[2018-05-08 12:14] VITALS: BP 101/69
[2018-05-08 15:59] VITALS: BP 104/68
[2018-05-08 22:09] VITALS: BP 114/67
[2018-05-09] MEDS ORDERED: GABAPENTIN100 MG PO (05:51)
[2018-05-09] MEDS ORDERED: MOBIC7.5 MG PO (05:52)
[2018-05-09 06:16] VITALS: BP 99/59
[2018-05-09 06:20] LABS: BASOPHILS 0.2 % (0-2); EOSINOPHILS 0.9 % (0-7); HEMATOCRIT 39.7 % (36.0-48.0); HEMOGLOBIN 13.6 g/dL (12-16); IMMATURE GRANULOCYTES 0.7 % (0-5); LYMPHOCYTES 16.7 % (15-50); MCH 33.4 pg (26.0-34.0); MCHC 34.3 g/dL (31.0-37.0); MCV 97.5 fL (80.0-100.0); MEAN PLATELET VOLUME 11.4 fL (7.4-10.4); NEUTROPHILS 66.5 % (40-80); PLATELET COUNT 246 10x3/uL (130-400); RBC 4.07 10x6/uL (4.00-5.40); RDW 13.4 % (11.5-14.5); WBC 9.2 10x3/uL (4.8-10.8)
[2018-05-09 06:35] LABS: ALBUMIN 2.6 g/dL (3.4-5.0); ALKALINE PHOSPHATASE 95 U/L (46-116); ALT (SGPT) 37 U/L (10-68); BILIRUBIN - TOTAL 0.64 mg/dL (0.2-1.3); CALC OSMOLALITY 272 mosm/kg (275-300); CALCIUM 9.2 mg/dL (8.5-10.1); CARBON DIOXIDE 24.8 mmol/L (21.0-32.0); CHLORIDE - SERUM 103 mmol/L (98-107); CREATININE - SERUM 0.6 mg/dL (0.6-1.3); GLUCOSE 103 mg/dL (74-106); MAGNESIUM - SERUM 1.4 mg/dL (1.8-2.4); POTASSIUM - SERUM 3.3 mmol/L (3.5-5.1); PROTEIN - SERUM 6.8 g/dL (6.4-8.2); SODIUM 137 mmol/L (136-145); eGFR NON AFRICAN AMERICAN > 90 mL/min (90-120)
[2018-05-09 06:36] LABS: UREA NITROGEN 10 mg/dL (7-18)
[2018-05-09 10:45] VITALS: BP 117/63
[2018-05-09 21:23] VITALS: BP 187/88
[2018-05-09 21:35] VITALS: BP 105/67
[2018-05-10 05:25] VITALS: BP 113/71
[2018-05-10 06:18] LABS: BASOPHILS 0.5 % (0-2); EOSINOPHILS 0.7 % (0-7); HEMATOCRIT 38.2 % (36.0-48.0); IMMATURE GRANULOCYTES 0.4 % (0-5); LYMPHOCYTES 15.7 % (15-50); MCH 33.2 pg (26.0-34.0); MCV 97.7 fL (80.0-100.0); MEAN PLATELET VOLUME 11.5 fL (7.4-10.4); MONOCYTES 13.8 % (2-11); NEUTROPHILS 68.9 % (40-80); PLATELET COUNT 236 10x3/uL (130-400); RBC 3.91 10x6/uL (4.00-5.40); RDW 13.8 % (11.5-14.5); WBC 10.2 10x3/uL (4.8-10.8)
[2018-05-10 06:47] LABS: ALBUMIN 2.7 g/dL (3.4-5.0); ALKALINE PHOSPHATASE 106 U/L (46-116); ALT (SGPT) 38 U/L (10-68); BILIRUBIN - TOTAL 0.48 mg/dL (0.2-1.3); CALC OSMOLALITY 273 mosm/kg (275-300); CALCIUM 8.9 mg/dL (8.5-10.1); CARBON DIOXIDE 25.3 mmol/L (21.0-32.0); CHLORIDE - SERUM 103 mmol/L (98-107); CREATININE - SERUM 0.6 mg/dL (0.6-1.3); GLUCOSE 90 mg/dL (74-106); MAGNESIUM - SERUM 1.3 mg/dL (1.8-2.4); POTASSIUM - SERUM 3.5 mmol/L (3.5-5.1); PROTEIN - SERUM 6.8 g/dL (6.4-8.2); SODIUM 137 mmol/L (136-145); eGFR NON AFRICAN AMERICAN > 90 mL/min (90-120)
[2018-05-10 06:49] LABS: UREA NITROGEN 13 mg/dL (7-18)
[2018-05-10 08:27] VITALS: BP 111/61
[2018-05-10 11:14] VITALS: BP 118/72
[2018-05-10] MEDS ORDERED: PERPHENAZINE2 MG PO (11:48)
[2018-05-10] MEDS ORDERED: LASIX40 MG PO (11:48)
[2018-05-10] MEDS ORDERED: PREDNISONE10 MG PO (11:49)
[2018-05-10] MEDS ORDERED: Nicoderm [PBKC] TRANSDERM (11:50)
[2018-05-10] MEDS ORDERED: BROVANA15 MCG/2 M INH (11:50)
[2018-05-10] MEDS ORDERED: VENTOLIN HFA18 GM INH (11:50)
== END 2018-05-10 14:29 | disposition home or self-care (01) | DRG 870 ==
LOC: D.ER 18:21 → D.ICU 19:55 → D.MS 05-07 13:14
PROVIDERS: Emergency Medicine; Family Medicine; Internal Medicine Nephrology; Internal Medicine Pulmonary Disease; Specialist
PROC: 5A1955Z Respiratory Ventilation, Greater than 96 Consecutive Hours (ICD-10-PCS; principal; 2018-04-28)
PROC: 05HY33Z Insertion of Infusion Device into Upper Vein, Percutaneous Approach (ICD-10-PCS; 2018-04-28)
PROC: 0W993ZZ Drainage of Right Pleural Cavity, Percutaneous Approach (ICD-10-PCS; 2018-04-30)
PROC: 05HY33Z Insertion of Infusion Device into Upper Vein, Percutaneous Approach (ICD-10-PCS; 2018-05-04)
DX: A41.9 Sepsis, unspecified organism (principal); R65.21 Severe sepsis with septic shock; J96.01 Acute respiratory failure with hypoxia; J96.02 Acute respiratory failure with hypercapnia; I50.23 Acute on chronic systolic (congestive) heart failure; J18.9 Pneumonia, unspecified organism; I46.9 Cardiac arrest, cause unspecified; J45.901 Unspecified asthma with (acute) exacerbation; N39.0 Urinary tract infection, site not specified; E87.2 Acidosis; E87.1 Hypo-osmolality and hyponatremia; I31.3 Pericardial effusion (noninflammatory); E87.3 Alkalosis; F15.10 Other stimulant abuse, uncomplicated; F10.10 Alcohol abuse, uncomplicated; E83.51 Hypocalcemia; T68.XXXA Hypothermia, initial encounter; I95.9 Hypotension, unspecified; J44.9 Chronic obstructive pulmonary disease, unspecified